=== PATIENT | female | born 1965 | race Caucasian/White ===

== ENCOUNTER 2020-09-03 10:44 | Observation (INO) | payer BC ==
[2020-09-03] MEDS ORDERED: ACETAMINOPHEN 1000 MG/100 ML VIAL (NON FORMULARY) IVPB ONE (11:42)
[2020-09-03 12:17] LABS: BASO % 0.5 % (0-2.0); EOS % 1.5 % (0-4.5); HEMATOCRIT 40.3 % (32.4-45.2); LYMPH % 13.1 % (8-40); MCH 31.1 pg (25.7-33.7); MCHC 34.6 g/dl (32.0-36.0); MEAN CELL VOLUME 89.8 fl (80-96); MEAN PLT VOLUME 7.4 fl (7.5-11.1); MONO % 8.9 % (3.8-10.2); PLATELET COUNT 280 K/MM3 (134-434); RBC 4.49 M/mm3 (3.60-5.2); RDW 13.6 % (11.6-15.6); WHITE BLOOD COUNT 6.5 K/mm3 (4.0-10.0)
[2020-09-03 12:28] LABS: POTASSIUM 3.8 mmol/L (3.5-5.1)
[2020-09-03 12:33] LABS: INR 0.92 (0.83-1.09); PROTHROMBIN TIME (PATIENT) 11.4 SEC (9.7-13.0)
[2020-09-03 12:34] LABS: CREATININE 0.8 mg/dL (0.55-1.3)
[2020-09-03 12:35] LABS: BILIRUBIN,TOTAL 0.6 mg/dL (0.2-1)
[2020-09-03 12:36] LABS: ACTIVATED PTT 26.8 SECONDS (25.2-36.5)
[2020-09-03 12:38] LABS: CALCIUM 9.5 mg/dL (8.5-10.1); TOT PROT 7.8 g/dl (6.4-8.2)
[2020-09-03] MEDS ORDERED: ATORVASTATIN CA 80 MG TABLET (FP) PO ONE ×2 (12:48→15:42)
[2020-09-03] MEDS ORDERED: ASPIRIN 325 MG TABLET PO ONE (12:48)
[2020-09-03] MEDS ORDERED: ACETAMINOPHEN INJECTION 100 ML IVPB ONE (12:54)
[2020-09-03] MEDS ORDERED: ASPIRIN 325 MG ENTERIC COATED TABLET (FP) ONE (13:44)
[2020-09-03] MEDS ORDERED: ATORVASTATIN CA 80 MG TABLET (FP) ONE (13:44)
[2020-09-03 14:09] LABS: MAGNESIUM 1.9 mg/dL (1.8-2.4)
[2020-09-03 14:44] LABS: EPI CELLS 8 /uL (0-25.1); HYALINE CASTS 0 /uL (0-3.1); PH,URINE 6.5 (5.0-8.0); URINE APPEARANCE CLEAR; URINE BACTERIA 105 /uL (0-1359); URINE BILIRUBIN NEGATIVE (NEGATIVE); URINE COLOR YELLOW; URINE GLUCOSE (UA) NEGATIVE (NEGATIVE); URINE KETONE NEGATIVE (NEGATIVE); URINE LEUK ESTERASE TRACE (NEGATIVE); URINE NITRITE NEGATIVE (NEGATIVE); URINE PROTEIN NEGATIVE (NEGATIVE); URINE RBC 5 /uL (0-23.9); URINE UROBILINOGEN 0.2 mg/dL (0.2-1.0); URINE WBC 5 /uL (0-25.8)
[2020-09-03 17:25] VITALS: BMI 30.4
[2020-09-03] MEDS: LISINOPRIL 20 MG TABLET PO SCH (17:50)
[2020-09-03] MEDS: ENOXAPARIN NA (PORCINE) 40 MG/0.4 ML DISP.SYRIN SQ SCH (17:50)
[2020-09-03] MEDS ORDERED: ACETAMINOPHEN 325 MG TABLET (FP) PO PRN (18:07)
[2020-09-04 08:29] LABS: BASO % 0.7 % (0-2.0); EOS % 2.3 % (0-4.5); HEMATOCRIT 39.5 % (32.4-45.2); HEMOGLOBIN 13.4 GM/dL (10.7-15.3); LYMPH % 23.2 % (8-40); MCH 30.6 pg (25.7-33.7); MCHC 33.8 g/dl (32.0-36.0); MEAN CELL VOLUME 90.5 fl (80-96); MEAN PLT VOLUME 7.7 fl (7.5-11.1); MONO % 11.3 % (3.8-10.2); NEUT % 62.5 % (42.8-82.8); PLATELET COUNT 225 K/MM3 (134-434); RBC 4.36 M/mm3 (3.60-5.2); RDW 13.3 % (11.6-15.6); WHITE BLOOD COUNT 4.6 K/mm3 (4.0-10.0)
[2020-09-04 09:00] LABS: POTASSIUM 3.9 mmol/L (3.5-5.1)
[2020-09-04] MEDS: ENOXAPARIN NA (PORCINE) 40 MG/0.4 ML DISP.SYRIN SQ SCH (09:02)
[2020-09-04] MEDS: LISINOPRIL 20 MG TABLET PO SCH (09:03)
[2020-09-04 09:13] LABS: ALBUMIN 3.7 g/dl (3.4-5.0); BLOOD UREA NITROGEN 9.7 mg/dL (7-18); CALCIUM 9.2 mg/dL (8.5-10.1)
[2020-09-04 09:16] LABS: CREATININE 0.7 mg/dL (0.55-1.3)
[2020-09-04 09:18] LABS: BILIRUBIN,TOTAL 0.8 mg/dL (0.2-1); TOT PROT 7.2 g/dl (6.4-8.2)
[2020-09-04] MEDS ORDERED: ASPIRIN 81 MG CHEWABLE TABLETS PO SCH (10:00)
[2020-09-04 14:09] VITALS: BP 127/65; PULSE 71; TEMP 98
[2020-09-04] MEDS ORDERED: ATORVASTATIN CA 40 MG TABLET (FP) PO SCH (22:00)
== END 2020-09-04 18:46 | disposition home or self-care (01) ==
LOC: JER 10:44 → UNDOADMOB 12:28 → INTOOBSV 12:28 → JERBED 12:28 → J4S 17:34
PROVIDERS: ADMIT Internal Medicine; ATTEND Internal Medicine
PROC: 3E0234Z Introduction of Serum, Toxoid and Vaccine into Muscle, Percutaneous Approach (ICD-10-PCS; principal; 2020-09-03)
PROC: 3E033NZ Introduction of Analgesics, Hypnotics, Sedatives into Peripheral Vein, Percutaneous Approach (ICD-10-PCS; 2020-09-03)
DX: G45.9 Transient cerebral ischemic attack, unspecified (principal); U07.1 COVID-19; R05 Cough; E66.8 Other obesity; Z68.30 Body mass index [BMI] 30.0-30.9, adult; R53.1 Weakness; I10 Essential (primary) hypertension; E78.5 Hyperlipidemia, unspecified; Z29.9 Encounter for prophylactic measures, unspecified; R51.9 Headache, unspecified; R29.810 Facial weakness
CPT/HCPCS: 36415; 70450-TC; 70551-TC; 71046-TC-FY; 80053; 80061; 81003; 82728; 83036; 83615; 83721; 83735; 84443; 84484; 85025; 85379; 85610; 85730; 86140; 86769; 93005; 93010; 93306-TC; 93880-TC; 97116-GP; 97161-GP; 99285-25; C9803; G0378; J0131; U0003